=== PATIENT | female | born 1950 | race Caucasian/White ===

== ENCOUNTER 2023-01-24 10:40 | Day surgery (SDC) | payer MEDICARE ==
[~2023-01-24] VITALS: Ht 165.1 cm; Wt 96.3 kg
[2023-01-24] MEDS ORDERED: LEVOTHYROXINE50 MC9 PO (11:12)
[2023-01-24] MEDS ORDERED: METO25ER PO (11:13)
[2023-01-24] MEDS ORDERED: HYDCHL25 PO (11:13)
[2023-01-24] MEDS ORDERED: PANT40 PO (11:13)
[2023-01-24 14:07] VITALS: BP 121/64
== END 2023-01-24 14:59 | disposition home or self-care (01) ==
LOC: ORSCSDS 10:40
PROVIDERS: Podiatrist Foot & Ankle Surgery
PROC: 0QSN04Z Reposition Right Metatarsal with Internal Fixation Device, Open Approach (ICD-10-PCS; principal; 2023-01-24 12:00)
DX: M20.11 Hallux valgus (acquired), right foot (principal); I10 Essential (primary) hypertension; E03.9 Hypothyroidism, unspecified; K21.9 Gastro-esophageal reflux disease without esophagitis; Z79.899 Other long term (current) drug therapy; E66.9 Obesity, unspecified; Z68.34 Body mass index [BMI] 34.0-34.9, adult
CPT/HCPCS: A9270; C1713; C1769; J0171; J0690; J1100; J2001; J2405; J2704; J2795; J3010; J7120